=== PATIENT | female | born 1965 | race Caucasian/White ===

== ENCOUNTER 2018-01-08 16:54 | Emergency (ER) | payer MEDICAID ==
[2018-01-08] MEDS: KETOROLAC 60 MG INJ IM (21:00)
[2018-01-08 21:02] LABS: URINE BLOOD (Dip) POC Trace-lysed (NEGATIVE); URINE GLUCOSE (Dip) POC Negative (NEGATIVE); URINE KETONES (Dip) POC Negative (NEGATIVE); URINE LEUKOCYTE EST (Dip) POC Negative (NEGATIVE); URINE NITRITE (Dip) POC Negative (NEGATIVE); URINE TOTAL PROTEIN POC Negative (NEGATIVE)
[2018-01-08 21:02] LABS: URINE PH (Dip) POC 5.5 (5.0-8.5)
== END 2018-01-08 21:42 | disposition home or self-care (01) ==
LOC: FTE 21:42
DX: M54.5 Low back pain (principal); I10 Essential (primary) hypertension
CPT/HCPCS: 81003; 96372; 99284-25